=== PATIENT | male | born 1935 | race Caucasian/White ===

== ENCOUNTER → 2018-04-17 | Outpatient (CLI) | payer MEDICARE ==
--- NOTE | 2018-04-17 17:01 | PCVCIMAG ---
APPROVED REPORT Study performed: 04/17/2018 15:06:45 Exam: Stress Echocardiogram Indication: Dyspnea Patient Location: Echo lab Stress Nurse: Jessica Douglas RN Room #: 2 Status: routine Ht: 5 ft 7 in HR: 72 bpm BP: 128/76 mmHg Rhythm: NSR Medical History Medical History: Obesity , dyspnea Previous Cardiac Procedures: none Pretest Chest Pain Characteristics: No chest pain Exercise History: Sedentary Procedure The patient underwent an Exercise Stress Test using the Ashok Protocol. Blood pressure, heart rate, and EKG were monitored. An Echocardiogram was performed by traffic signal technician in four stages in quad fashion. At peak stress, four selected images were obtained and placed side by side with resting images for comparison. Stress Test Details Stress Test: Exercise stress testing was performed using a Ashok protocol. HR Resting HR: 72 bpmMax Heart Rate (APMHR): 139 bpm Max HR Achieved: 141 bpmTarget HR (85% APMHR): 118 bpm % of APMHR: 101 Recovery HR: 84 bpm HR response to stress: Normal HR response to stress BP Resting BP: 128/76 mmHg Max BP: 184/90 mmHg Recovery BP: 180/90 mmHg ECG Resting ECG: Sinus Rhythm, RBBB Stress ECG: Sinus Rhythm, RBBB ST Change: Non-ischemic Maximum ST Deviation: 0 mm Arrhythmia: occasional PVCs Recovery ECG: Sinus Rhythm Recovery ST Change: Non-ischemic Recovery ST Deviation: 0 mm Recovery Arrhythmia: Occasional PVCs,PACs Clinical Reason for Termination: Maximal effort Stress Symptoms: fatigue Exercise duration: 4 min 40 sec Highest Stage Achieved: Stage 2: 2.5 mph at 12% grade. Exercise capacity: 7 METs Overall Exercise Capacity for Age: Poor Scale: Sedentary Angina Score: None No complications. Stress ECG Conclusion The patient exercised according to the ASHOK protocol for 4:40 mins; achieving a work level of 7.0 METS. The resting heart rate of 78 bpm moraima to a maximum heart rate of 141 bpm. This value represent 101% of the maximal, age-predicted heart rate. The resting blood pressure of 128/76 mmHg, moraima to a maximum blood pressure of 184/90 mmHg. The exercise test was stopped due to fatigue. Lang Treadmill Score is 4.0 which is Moderate risk. Pre-Stress Echo The resting Echocardiogram showed normal left ventricular contractility with an estimated Ejection Fraction of about 55-60%. Normal wall motion in all segments on baseline images. Post-Stress Echo The stress Echocardiogram showed normal left ventricular contractility with an estimated Ejection Fraction of about 65-70%. Normal augmentation of wall motion in all segments on post stress images. Clinical No clinical or ECG evidence for ischemia. Conclusion Clinical Response: Non-ischemic Exercise Capacity: Below Average Stress ECG Response: Ischemic Stress Echo Images: Non-ischemic No clinical, EKG or echocardiographic evidence for ischemia. No echocardiographic evidence for exercise induced ischemia. Normal stress echocardiogram with maximal exercise stress. No prior study available for comparison. <Conclusion> No clinical, EKG or echocardiographic evidence for ischemia. No echocardiographic evidence for exercise induced ischemia. Normal stress echocardiogram with maximal exercise stress.
== END | disposition home or self-care (01) ==
LOC: PCVCIMAG 14:51
PROVIDERS: ATTEND Internal Medicine
DX: R06.09 Other forms of dyspnea (principal)
CPT/HCPCS: 93325; 93351